=== PATIENT | female | born 1990 | race Caucasian/White ===

== ENCOUNTER 2020-09-24 10:30 | Outpatient (RCR) | payer MEDICAID, SELFPAY ==
[2020-09-08 13:39] VITALS: BMI 31.3
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
--- NOTE | 2020-09-14 13:43 | HO.PHPPROGNO ---
Subjective Subjective Date of Service: 09/14/20 Reason For Visit: Depression, Anxiety, PTSD, Borderline Personality Interim History: The patient reported that the increase of Gabapentin has helped a little, no oversedation. She asked to fill [place] paperwork. We discussed options and she agreed to increase Gabapentin up to 300 mg po tid. Medication Compliance: Yes Side effects from medications: No Attending Groups: Yes Review of Systems Acute medical concerns: No Medical Review of Systems: unchanged Mental Status Exam Mental Status Exam Patient Appearance: Well Grooomed Patient Orientation: Person, Place, Time and Situation Level of Consciousness: Awake Patient Behavior: Appropriate Mood Description: Calm and Withdrawn Affect Description: Constricted Patient Cognition Impaired: No Ability to Follow Directions: Good Speech Pattern: Clear Memory Description: Intact Hallucinations: None Delusions: Not Present Thought Process: Goal Oriented Thought Content: positive for Intact Judgement: Fair Diagnostics Vital Signs (24Hr): Body Mass Index 31.3 Assessment & Plan Assessment & Plan (1) Mood disorder: Status: Acute Code(s): F39 - Unspecified mood [affective] disorder Assessment and Plan: Thepatient is an adult female with moo disorder with a recent exacerbation of depression after the of her father. Plan: Increase Gabapentin up to 300 mg po tid. REst the same Certification I certify that partial hospital treatment is medically necessary due to the symptoms and problems resulting from the patient's mental illness and the failure to treat the patient at the partial hospital level of care would likely result in the patient requiring inpatient psychiatric care which could not be prevented at a less intensive level of care. Greater than 50% of the session was spent on counseling and/or coordination of care Discharge Plan Discharge Attending provider: Brent Jorgensen Primary Care Provider: Rodney Mccann Medications: New gabapentin 300 mg capsule 300 mg PO TID 14 Days Qty: 42 RF: 0 Discontinued gabapentin 100 mg Tablet 100 mg PO TID RF: 0 No Action amitriptyline 75 mg Tablet 75 mg PO BEDTIME RF: 0 olanzapine 5 mg Tablet 5 mg PO BEDTIME RF: 0 clonazepam [Klonopin] 1 mg Tablet 1 mg PO TID PRN (Reason: Anxiety) RF: 0 metformin 850 mg Tablet 850 mg PO BID RF: 0 paroxetine HCl [Paxil] 40 mg Tablet 40 mg PO BEDTIME RF: 0 olanzapine 20 mg Tablet 20 mg PO BEDTIME RF: 0 prazosin 2 mg Capsule 4 mg PO BEDTIME RF: 0 Referrals: Rodney Mccann DO, MD [Primary Care Provider] - 1 Week Telehealth Telehealth Location of provider rendering services: practice address Location of patient: address on file Patient Identification confirmed using: Name, : Yes Telehealth method: video Patient verbally consented to treatment: Yes Patient verbally consented to billing insurance company: Yes Patient informed of any privacy concerns related to visit: No Time spent with patient (mins): 15
--- NOTE | 2020-09-23 14:33 | PC.NURSE ---
Patient told me on Sunday07/22/20 that she will need refills on her medications and she has enough medications until her last dose on morning. I told her I would schedule her to see Dr Jorgensen on for refills and she agreed. Patient did not show up to the program today as she told staff she did not feel well. Called patient to follow up regarding the above mentioned information however unable to get a hold of patient as she did not answer her phone and her mail box was full.
--- NOTE | 2020-09-24 14:09 | HO.PHPPROGNO ---
Subjective Subjective Date of Service: 09/24/20 Reason For Visit: Depression, Anxiety, PTSD, Borderline Personality Interim History: The patient reported that she is doing better and requested an increase of Gabapentin. She has cut a little on Klonopin Medication Compliance: Yes Side effects from medications: No Attending Groups: Yes Mental Status Exam Mental Status Exam Patient Appearance: Well Grooomed Patient Orientation: Person, Place, Time and Situation Level of Consciousness: Awake and Appropriate Patient Behavior: Appropriate Mood Description: Calm Affect Description: Appropriate Patient Cognition Impaired: No Ability to Follow Directions: Good Speech Pattern: Clear Hallucinations: None Delusions: Not Present Thought Process: Goal Oriented Thought Content: positive for Intact Judgement: Fair Diagnostics Vital Signs (24Hr): Body Mass Index 31.3 Assessment & Plan Assessment & Plan (1) Mood disorder: Status: Acute Code(s): F39 - Unspecified mood [affective] disorder Assessment and Plan: The patient is an adult female with mood disorder, cluster B traits, self-referred for exacerbation of depression. On intake, she reported that she was just started on Gabapentin. We titrated up slowly up to 300 mg TID with fair improvement. Plan: Keep same treatment Discharge and transfer to her regular provider. Certification I certify that partial hospital treatment is medically necessary due to the symptoms and problems resulting from the patient's mental illness and the failure to treat the patient at the partial hospital level of care would likely result in the patient requiring inpatient psychiatric care which could not be prevented at a less intensive level of care. Greater than 50% of the session was spent on counseling and/or coordination of care Discharge Plan Discharge Attending provider: Brent Jorgensen Primary Care Provider: Rodney Mccann Medications: Continued gabapentin 300 mg capsule 300 mg PO TID 14 Days Qty: 42 RF: 1 Discontinued gabapentin 100 mg Tablet 100 mg PO TID RF: 0 No Action amitriptyline 75 mg Tablet 75 mg PO BEDTIME RF: 0 olanzapine 5 mg Tablet 5 mg PO BEDTIME RF: 0 clonazepam [Klonopin] 1 mg Tablet 1 mg PO TID PRN (Reason: Anxiety) RF: 0 metformin 850 mg Tablet 850 mg PO BID RF: 0 paroxetine HCl [Paxil] 40 mg Tablet 40 mg PO BEDTIME RF: 0 olanzapine 20 mg Tablet 20 mg PO BEDTIME RF: 0 prazosin 2 mg Capsule 4 mg PO BEDTIME RF: 0 Referrals: Rodney Mccann DO, MD [Primary Care Provider] - 1 Week Telehealth Telehealth Location of provider rendering services: practice address Location of patient: address on file Patient Identification confirmed using: Name, : No Telehealth method: video Patient verbally consented to treatment: Yes Patient verbally consented to billing insurance company: Yes Patient informed of any privacy concerns related to visit: No Time spent with patient (mins): 15
--- NOTE | 2020-09-24 14:10 | PC.NURSE ---
Patient discharged from the PHP program today. Reviewed patients medications with patient. Reports she is taking them as prescribed, needs some refills which she plans on discussing with Dr Jorgensen during her appointment with him today.
== END 2020-09-27 08:53 | disposition home or self-care (01) ==
LOC: HO.PHPA 10:30
PROVIDERS: PCP Internal Medicine; Visit Provider Psychiatry & Neurology Psychiatry
DX: F32.9 Major depressive disorder, single episode, unspecified (principal); F41.9 Anxiety disorder, unspecified; F43.10 Post-traumatic stress disorder, unspecified; F60.3 Borderline personality disorder; Z79.899 Other long term (current) drug therapy
CPT/HCPCS: 90791; 90853

== ENCOUNTER 2022-04-07 08:30 | Outpatient (RCR) | payer OTHER, SELFPAY ==
[2022-03-21 11:00] VITALS: BP 114/80; PULSE 80; TEMP 36.6
[2022-03-21 11:08] VITALS: BMI 37.9
[2022-03-21 12:57] LABS: Amphetamine Screen Urine Not Detected (Not Detect); Barbiturates, Urine Not Detected (Not Detect); Benzodiazepines Screen Urine Not Detected (Not Detect); Cannabinoid Screen Urine POSITIVE (Not Detect); Cocaine Screen Urine Not Detected (Not Detect); Fentanyl, urine Not Detected (Not Detect); Opiate Screen Urine Not Detected (Not Detect); Phencyclidine Screen Urine Not Detected (Not Detect)
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
--- NOTE | 2022-03-24 07:57 | HO.PHPIOP ---
Case opened in treatment team
[2022-03-27 14:57] LABS: Amphetamine Screen Urine Not Detected (Not Detect); Barbiturates, Urine Not Detected (Not Detect); Benzodiazepines Screen Urine Not Detected (Not Detect); Cannabinoid Screen Urine POSITIVE (Not Detect); Cocaine Screen Urine Not Detected (Not Detect); Fentanyl, urine Not Detected (Not Detect); Opiate Screen Urine Not Detected (Not Detect); Phencyclidine Screen Urine Not Detected (Not Detect)
--- NOTE | 2022-03-27 16:35 | HO.PHPPROGNO ---
Subjective Subjective Date of Service: 03/27/22 Reason For Visit: depression,anxiety,PTSD,borderline personality Medical Problems Affecting Mental Status: No Interim History: Describes mood as ?not good, lot of anxiety ?. Requesting higher dose of Klonopin. No SI. Continues with nightmares, requesting increase in prazosin. No other concerns, feels safe. Medication Compliance: Yes Side effects from medications: No Attending Groups: Yes Review of Systems Acute medical concerns: No Medical Review of Systems: unchanged Review of Systems Review of Systems Yes all other systems are reviewed and are negative Constitutional: Reports no additional constitutional complaints Mental Status Exam Mental Status Exam Narrative: NAD. Patient Appearance: Appropriate Patient Orientation: Person, Place, Time and Situation Level of Consciousness: Appropriate and Alert Patient Behavior: Appropriate, Cooperative and Good Eye Contact Mood Description: Anxious Affect Description: Anxious Patient Cognition Impaired: No Ability to Follow Directions: Good Speech Pattern: Clear and Appropriate Memory Description: Intact Hallucinations: None Delusions: Not Present Perceptual Disturbances: Depersonalization Thought Process: Intact Thought Content: positive for Intact Depressive Symptoms: Increased Anxiety, Diff. Making Decisions, Increased Irritability, Difficulty Sleeping, Loss of Int. in Activity, Hopelessness, Increased Fatigue and Loss of Energy Judgement: Fair Diagnostics Vital Signs (24Hr): BMI result Body Mass Index 37.9 Labs Labs: Laboratory Results - last 48 hr 03/27/22 11:55 Urine Opiates Screen Not Detected Urine Fentanyl Screen Not Detected Ur Barbiturates Screen Not Detected Ur Phencyclidine Scrn Not Detected Ur Amphetamines Screen Not Detected U Benzodiazepines Scrn Not Detected Urine Cocaine Screen Not Detected U Marijuana (THC) Screen POSITIVE H Assessment & Plan Assessment & Plan (1) Major depressive disorder, recurrent severe without psychotic features: Status: Acute Code(s): F33.2 - Major depressive disorder, recurrent severe without psychotic features Assessment and Plan: Describes mood as ?not good, lot of anxiety ?. Requesting higher dose of Klonopin. States she had been taking Klonopin 1 mg twice daily, and sometimes using the p.r.n. if needed. Requesting this dose at this time. Attending groups, finding them helpful. No SI. Continues with nightmares, requesting increase in prazosin. Dose was increased last week to 2 mg, which has been helpful. Would prefer to have dose increased to 3 mg, as continues with some nightmares. No other concerns, feels safe. Discussed any other substance use. Patient states she is not using anything illicit. Reports that she weaned herself off of prescribed opioids, she did not want to have any issues with the medication. (2) PTSD (post-traumatic stress disorder): Status: Acute Code(s): F43.10 - Post-traumatic stress disorder, unspecified (3) Borderline personality disorder: Status: Acute Code(s): F60.3 - Borderline personality disorder Plan 1. Continue with current [facility] plan of care. 2. Increase prazosin to 3 mg at bedtime. 3. Increase clonazepam to 1 mg b.i.d.. 4. Continue with other medications as currently prescribed. 5. Follow-up as per protocol. Patient educated on: diagnosis, medication risk/benefits and therapeutic strategies Guardian/Caregiver educated on: substance abuse Informed Consent: understands Reason for contiued partial hosp. stay Substantial Risk for: inability to function, rapid decompensation and med/psych decompensation Certification I certify that partial hospital treatment is medically necessary due to the symptoms and problems resulting from the patient's mental illness and the failure to treat the patient at the partial hospital level of care would likely result in the patient requiring inpatient psychiatric care which could not be prevented at a less intensive level of care. I spent minutes with the patient and/or on the patient floor today, greater than?50% of which was spent counseling/coordinating care. Discharge Plan Discharge Attending provider: Brent Jorgensen Medications: New nicotine (polacrilex) [Nicorette] 2 mg gum 2 mg buccal Q2H Qty: 20 0RF prazosin 1 mg capsule 3 mg PO BEDTIME Qty: 21 0RF clonazepam 1 mg tablet 1 mg PO BID 7 Days Qty: 14 0RF duloxetine 30 mg capsule,delayed release(DR/EC) 30 mg PO DAILY Qty: 30 0RF Discontinued clonazepam [Klonopin] 1 mg Tablet 1 mg PO TID PRN (Reason: Anxiety) Label Comments: Patient stated she typically takes 1/2 tab bid daily. Honey Quiroz CAPACITY PLANNING MANAGER aware. No Action oxycodone 5 mg Tablet 5 mg PO Q4-6H PRN (Reason: Pain) Label Comments: Patient took 1/2 tab this morning. Rx Instructions: Last filled 03/17/22 #24 tabs metoprolol succinate 50 mg tablet extended release 24 hr 1 tab PO DAILY diphenhydramine HCl [Benadryl Allergy] 25 mg Tablet 25 mg PO TID PRN (Reason: Rash) Label Comments: Patient using OTC for Hives on L elbow area after surgery. She stated surgeon recommend she take d/t a reaction from steri strips. lisinopril 5 mg Tablet 5 mg PO DAILY Label Comments: Patient stated her make up editor will fill this prescription. metoprolol succinate 25 mg tablet extended release 24 hr 1 tab PO DAILY quetiapine [Seroquel XR] 150 mg Tablet Extended Release 24 Hr 150 mg PO QPM
--- NOTE | 2022-04-04 14:36 | HO.PHPPROGNO ---
Subjective Subjective Date of Service: 04/04/22 Reason For Visit: depression,anxiety,PTSD,borderline personality Medical Problems Affecting Mental Status: No Interim History: Describes mood as not that great, my anxiety is high . Also reports feels depressed. Ran out of medication yesterday, had a difficult night. Asking for medication dose increases. Prazosin 3mg helping at night. Finding groups helpful. No SI/HI, no safety concerns. Asking about ketamine Medication Compliance: Yes Side effects from medications: No Attending Groups: Yes Review of Systems Acute medical concerns: No Medical Review of Systems: unchanged Review of Systems Review of Systems Yes all other systems are reviewed and are negative Constitutional: Reports no additional constitutional complaints Mental Status Exam Mental Status Exam Narrative: NAD. Patient Appearance: Appropriate Patient Orientation: Person, Place, Time and Situation Level of Consciousness: Appropriate and Alert Patient Behavior: Appropriate, Cooperative and Good Eye Contact Mood Description: Anxious Affect Description: Anxious Patient Cognition Impaired: No Ability to Follow Directions: Good Speech Pattern: Clear and Appropriate Memory Description: Intact Hallucinations: None Delusions: Not Present Thought Process: Intact Thought Content: positive for Intact Depressive Symptoms: Increased Anxiety, Diff. Making Decisions, Increased Irritability, Loss of Int. in Activity, Increased Fatigue and Loss of Energy Judgement: Fair Diagnostics Vital Signs (24Hr): BMI result Body Mass Index 37.9 Assessment & Plan Assessment & Plan (1) Major depressive disorder, recurrent severe without psychotic features: Status: Acute Code(s): F33.2 - Major depressive disorder, recurrent severe without psychotic features Assessment and Plan: Continues with it anxious mood an affect. Also reports feeling depressed. Requests klonopin be increased to 1mg TID, as she had taken this dose for years with positive effect. We also discussed increasing duloxetine, in order to address sx of anxiety and depression. Risks, benefits, alternatives discussed. She was in agreement with this plan. No SI/HI, no safety concerns. Finding the prazosin 3mg helpful with nightmares / wakening during the night. Still awakening early, but able to sleep for a longer period uninterrupted during night. (2) PTSD (post-traumatic stress disorder): Status: Acute Code(s): F43.10 - Post-traumatic stress disorder, unspecified (3) Borderline personality disorder: Status: Acute Code(s): F60.3 - Borderline personality disorder Plan 1. Increase klonopin to 1mg TID. 2. Increase duloxetine to 60mg daily 3. Refill of prazosin sent. 4. Continue with current [facility] plan of care. 5. Follow-up as per protocol. Patient educated on: diagnosis, medication risk/benefits and therapeutic strategies Informed Consent: understands Reason for contiued partial hosp. stay Substantial Risk for: harm to self, inability to function and rapid decompensation Certification I certify that partial hospital treatment is medically necessary due to the symptoms and problems resulting from the patient's mental illness and the failure to treat the patient at the partial hospital level of care would likely result in the patient requiring inpatient psychiatric care which could not be prevented at a less intensive level of care. I spent minutes with the patient and/or on the patient floor today, greater than?50% of which was spent counseling/coordinating care. Discharge Plan Discharge Attending provider: Brent Jorgensen Additional Instructions: New PCP appointment at [facility]. [address] [facility]. Office number [phone]. May 17, 2022 at 3:00 pm. Medications: New nicotine (polacrilex) [Nicorette] 2 mg gum 2 mg buccal Q2H Qty: 20 0RF clonazepam 1 mg tablet 1 mg PO TID PRN (Reason: anxiety) Qty: 21 0RF prazosin 1 mg capsule 3 mg PO BEDTIME Qty: 42 0RF duloxetine 60 mg capsule,delayed release(DR/EC) 60 mg PO DAILY Qty: 30 0RF Discontinued clonazepam [Klonopin] 1 mg Tablet 1 mg PO TID PRN (Reason: Anxiety) Label Comments: Patient stated she typically takes 1/2 tab bid daily. Honey Quiroz NEWS VIDEOTAPE EDITOR aware. diphenhydramine HCl [Benadryl Allergy] 25 mg Tablet 25 mg PO TID PRN (Reason: Rash) Label Comments: Patient using OTC for Hives on L elbow area after surgery. She stated surgeon recommend she take d/t a reaction from steri strips. No Action oxycodone 5 mg Tablet 5 mg PO Q4-6H PRN (Reason: Pain) Label Comments: Patient took 1/2 tab this morning. Rx Instructions: Last filled 03/17/22 #24 tabs metoprolol succinate 50 mg tablet extended release 24 hr 1 tab PO DAILY lisinopril 5 mg Tablet 5 mg PO DAILY Label Comments: Patient stated her energy trading analyst will fill this prescription. metoprolol succinate 25 mg tablet extended release 24 hr 1 tab PO DAILY quetiapine [Seroquel XR] 150 mg Tablet Extended Release 24 Hr 150 mg PO QPM Stand Alone Forms: Patient Portal Discharge page
--- NOTE | 2022-04-12 09:10 | PM.EVENT ---
Event Note Date of Service: 04/12/22 Event Note: Patient discharged due to in family. Returning next Sunday for intake/reassessment admission. One week refill Klonopin sent to pharmacy.
== END 2022-04-07 23:59 | disposition home or self-care (01) ==
LOC: HO.PHPA 08:30
PROVIDERS: Nurse Practitioner Psychiatric/Mental Health; Visit Provider Psychiatry & Neurology Psychiatry
DX: F33.2 Major depressive disorder, recurrent severe without psychotic features (principal); F43.10 Post-traumatic stress disorder, unspecified; F60.3 Borderline personality disorder; F17.210 Nicotine dependence, cigarettes, uncomplicated; Z79.899 Other long term (current) drug therapy
CPT/HCPCS: 80307; 90853

== ENCOUNTER 2022-05-25 12:31 | Outpatient (REF) | payer OTHER, SELFPAY ==
[2022-05-25 14:21] LABS: Hematocrit 43.5 % (37.0-47.0); Hemoglobin 14.8 g/dl (12.0-16.0); Mean Corpuscular Hemoglobin 30.5 pg (27.0-33.0); Mean Corpuscular Volume 89.5 fL (80.0-98.0); Mean Platelet Volume 10.4 fL (9.4-12.3); Platelet Count 347 X10*3/uL (160-400); Red Blood Count 4.86 X10*6/uL (4.20-5.50); Red Cell Distribution Width 12.5 % (11.0-16.0); White Blood Count 8.9 X10*3/uL (4.8-10.8)
[2022-05-25 14:46] LABS: Alanine Aminotransferase 28 U/L (0-31); Albumin Level 4.8 g/dL (3.5-5.0); Alkaline Phosphatase 49 U/L (39-117); Anion Gap 12 (12-20); Aspartate Amino Transferase 18 U/L (5-31); Bilirubin Total 0.8 mg/dL (0.0-1.0); Blood Urea Nitrogen 14 mg/dL (9-16); Calcium 9.9 mg/dL (8.4-10.2); Carbon Dioxide 27 mmol/L (22-29); Chloride 104 mmol/L (96-108); Cholesterol 180 mg/dL; Estimated Glomerular Filt Rate > 60; Glucose Fasting 110 mg/dL (60-99); HDL Cholesterol 41 mg/dL; LDL Cholesterol Calculated 121 mg/dl; Potassium 4.7 mmol/L (3.3-5.1); Sodium 138 mmol/L (135-145); Triglycerides 91 mg/dL
[2022-05-25 15:03] LABS: TSH reflex Free T4 1.36 uIU/mL (0.32-4.0)
[2022-05-25 15:15] LABS: Estimated Average Glucose 97 mg/dL
== END 2022-05-25 12:32 | disposition home or self-care (01) ==
LOC: HO.WFDLDS 12:31
PROVIDERS: Visit Provider Nurse Practitioner Family
DX: Z00.00 Encounter for general adult medical examination without abnormal findings (principal)
CPT/HCPCS: 36415; 80053; 80061; 83036; 84443; 85027

== ENCOUNTER → 2022-11-21 10:45 | Outpatient (BNV) | payer OTHER, SELFPAY | PROVIDERS: Visit Provider Psychiatry & Neurology Psychiatry | DX: F33.2 Major depressive disorder, recurrent severe without psychotic features (principal); F43.10 Post-traumatic stress disorder, unspecified; G90.A Postural orthostatic tachycardia syndrome [POTS]; F43.20 Adjustment disorder, unspecified; Z63.4 Disappearance and death of family member | CPT/HCPCS: 90792; 99212 ==

== ENCOUNTER 2022-12-04 11:30 | Outpatient (RCR) | payer OTHER, MEDICAID, SELFPAY ==
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
[2022-11-16 13:10] VITALS: BP 101/79; PULSE 62; TEMP 36.8
[2022-11-16 13:14] VITALS: BMI 33.4
--- NOTE | 2022-11-16 13:56 | PC.ADMIT ---
Patient is a 32 year old female who self referred to [facility] d/t increased anxiety with panic, depression, and PTSD sxs. Patient stated her mother unexpectedly 3 weeks ago from a heart attack. She tired to go back to work yesterday however she was not able to d/t feeling overwhelmed with anxiety and panic attacks. She reports taking a leave of absence from work to attend tx at [facility]. She also reports feeling overwhelmed with medical issues which contribute to her symptoms. She reports she was dx with POTS June 2022 after having COVID. She stated she got Covid after she had the Covid Vaccines including the booster. She reports she sees a certified tower climber regularly. She also reports hx of falling secondary to POTS however has improved with taking Midodrine. In addition, she has lost 125 lbs since January 2022 d/t decrease in appetite. Her PCP is making a referral to a GI doctor to f/u. Reports her doctor is monitoring her labs every two months now and reports history of low Magnesium and high K+. 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 Chani has been to [facility] in the past and has found it helpful. She is alert and oriented x4. Calm and cooperative. She presents with depressed mood and anxious affect. Denied SI. She reports she is having some intrusive thoughts to cut herself however she reports she has not cut herself in three years and does not want to start doing this again. She denied any plans of intent to cut herself. Medications reconciled with patient and patient's pharmacy. She reports increase in Hydroxyzine from her provider, unsure of the dose. Last filled 25 mg Hydroxyzine 09/21/22 every night PRN for 30 day supply.
--- NOTE | 2022-11-16 16:44 | HO.PHP ---
Clients case was reviewed and opened today in treatment team.
--- NOTE | 2022-11-21 11:12 | HO.PHPPROGNO ---
Subjective Subjective Date of Service: 11/21/22 Reason For Visit: depression,anxiety Healthcare Proxy: No Guardianship: No Medical Problems Affecting Mental Status: No Interim History: Chani is seen in follow-up. She started the program on 11/16 for increase in depression and anxiety since her mother's 3 weeks ago but she a longstanding history of psychiatric problems. Current medications her individually reviewed. She was seen on 11/16 by Alida Brown and she was in need of a prescription for Klonopin 1 mg t.i.d. which she has been on for over 5 years but it was not sent. I sent in 63 tablets until she sees her provider at [facility]. She denies any side effects. She is doing well at the program. Medication Compliance: Yes Side effects from medications: No Review of Systems Review of Systems Yes all other systems are reviewed and are negative Mental Status Exam Mental Status Exam Narrative: In today's visit she is alert, oriented and pleasant. Normal speech. Good eye contact. Affect is appropriate and subdued. No SI. No cognitive deficits. Judgment is intact Diagnostics Vital Signs (24Hr): BMI result Body Mass Index 33.4 Assessment & Plan Assessment & Plan (1) Major depressive disorder, recurrent severe without psychotic features: Status: Acute Code(s): F33.2 - Major depressive disorder, recurrent severe without psychotic features Plan Continue current regimen of medications. Continue partial hospital Patient educated on: diagnosis and medication risk/benefits Certification I certify that partial hospital treatment is medically necessary due to the symptoms and problems resulting from the patient's mental illness and the failure to treat the patient at the partial hospital level of care would likely result in the patient requiring inpatient psychiatric care which could not be prevented at a less intensive level of care. Total time managing care of this patient today ____ minutes. Discharge Plan Discharge Attending provider: Brent Jorgensen Medications: New gabapentin 100 mg capsule 100 mg PO TID Qty: 30 0RF Continued clonazepam 1 mg tablet 1 mg PO TID PRN (Reason: anxiety) Qty: 63 0RF Discontinued quetiapine [Seroquel XR] 150 mg tablet extended release 24 hr 150 mg PO QPM 30 Days Qty: 30 2RF prazosin 1 mg capsule 3 mg PO BEDTIME Qty: 42 0RF duloxetine 60 mg capsule,delayed release(DR/EC) 60 mg PO DAILY Qty: 30 0RF No Action metoprolol succinate 50 mg tablet extended release 24 hr 1 tab PO DAILY metoprolol succinate 25 mg tablet extended release 24 hr 1 tab PO DAILY hydroxyzine HCl 25 mg tablet 25 mg PO BEDTIME PRN (Reason: insomnia) midodrine 2.5 mg tablet 2.5 mg PO TID duloxetine 30 mg capsule,delayed release(DR/EC) 30 mg PO DAILY Spravato 84 mg (28 mg x 3) spray,non-aerosol 84 mg intranasal DAILY Stand Alone Forms: Patient Portal Discharge page
[2022-11-21 12:30] VITALS: BP 116/84; PULSE 64
--- NOTE | 2022-11-21 16:49 | HO.PHP ---
[facility] staff reached out to Chani's OP therapist Tatyana and was unable to get through. [facility] staff left a VM informing the therapist of Chani's start date and her end date, along with how she has been engaging within the group setting. [facility] staff encouraged her to call back if she has any additional questions.
--- NOTE | 2022-11-30 16:22 | HO.PHP ---
[facility] staff met with Chani to review why she is feeling she needs an extension in the program. Chani mentioned she is still struggling with her anxiety, in which she reports an increase in nightmares, getting only 5 to 6 hours of sleep that is interrupted, is needing to be more reliant on her PRN, and an increase in panic attacks (hyperventalating and holding her breath). Chani also talked about having intrusive thoughts around wanting to engage in self-harm. Although Chani mentioned she is feeling her overall mood is improving, she does not feel ready to leave the program at this time. [facility] staff asked Chani if Insurance does not approve an extension, can she contact her therapist to increase her appointments. Chani said that won't keep her from having to go back to work. [facility] staff mentioned that she will advocate for her and will let her know what insurance says. Chani was receptive.
--- NOTE | 2022-12-04 14:54 | PC.NURSE ---
Patient d/c today 12/04/22. Today patient reports she needs a refill of Gabapentin 100 mg po TID. Last filled 11/16/22 for 10 days by Shae Brown APRN. She has a prescriber appointment on 12/07/22. Harriet Loaiza is aware.
== END 2022-12-04 23:59 | disposition home or self-care (01) ==
LOC: HO.PHPA 11:30
PROVIDERS: Visit Provider Psychiatry & Neurology Psychiatry
DX: F33.2 Major depressive disorder, recurrent severe without psychotic features (principal); F43.10 Post-traumatic stress disorder, unspecified; G90.A Postural orthostatic tachycardia syndrome [POTS]; F43.20 Adjustment disorder, unspecified; Z63.4 Disappearance and death of family member
CPT/HCPCS: 90791; 90853